=== PATIENT | female | born 1970 | race Hispanic/Latino ===

== ENCOUNTER 2022-08-23 10:13 | Outpatient (CLI) | payer BC | END 2022-08-23 10:14 | disposition home or self-care (01) | LOC: NAV RAD 10:13 | PROVIDERS: ATTEND Family Medicine | DX: R05.2 Subacute cough (principal) | CPT/HCPCS: 71046 ==

== ENCOUNTER 2022-12-11 15:14 | Outpatient (CLI) | payer BC | END 2022-12-11 15:15 | disposition home or self-care (01) | LOC: NAV RAD 15:14 | PROVIDERS: ATTEND Family Medicine | DX: J40 Bronchitis, not specified as acute or chronic (principal) | CPT/HCPCS: 71046 ==

== ENCOUNTER 2024-09-01 13:47 | Outpatient (CLI) | payer BC | END 2024-09-01 13:48 | disposition home or self-care (01) | LOC: NAV RAD 13:47 | PROVIDERS: ATTEND Student in an Organized Health Care Education/Training Program | DX: M25.511 Pain in right shoulder (principal) ==